=== PATIENT | male | born 1980 | race Caucasian/White ===

== ENCOUNTER 2021-05-06 13:21 | Emergency (ER) | payer OTHER ==
[~2021-05-06] VITALS: Ht 172.7 cm; Wt 90.9 kg
[2021-05-06 14:24] VITALS: BP 176/99
[2021-05-06] MEDS ORDERED: ketorolac tromethamine 15mg/ml inj. IM ONE (20:00)
[2021-05-06] MEDS ORDERED: ketorolac trometh. 30mg/ml inj. IM ONE (20:10)
== END 2021-05-06 20:31 | disposition home or self-care (01) ==
LOC: ER 13:22
DX: S09.90XA Unspecified injury of head, initial encounter (principal); M25.532 Pain in left wrist; M54.2 Cervicalgia; M54.9 Dorsalgia, unspecified; R10.9 Unspecified abdominal pain; R42 Dizziness and giddiness; R11.2 Nausea with vomiting, unspecified; R55 Syncope and collapse; W19.XXXA Unspecified fall, initial encounter; Y93.89 Activity, other specified; Y92.89 Other specified places as the place of occurrence of the external cause; Y99.8 Other external cause status
CPT/HCPCS: 70450; 72125; 73110; 96372; 99284; J1885